=== PATIENT | male | born 1940 ===

== ENCOUNTER 2017-01-31 09:31 | Emergency (ER) | payer MEDICARE, MEDICAID ==
[2017-01-31 09:42] VITALS: BP 130/84; PULSE 70; RESP 20; TEMP 97.8; O2SAT 100
[2017-01-31 09:43] VITALS: BMI 41.9
[2017-01-31] MEDS ORDERED: Lidocaine 1% Inj (20ml) ONE (10:44)
--- NOTE | 2017-01-31 10:53 | ED PDOC ---
HPI: Skin/Bite Injury Time Seen by Provider: 01/31/17 10:02 Chief Complaint (Nursing): Abnormal Skin Integrity Chief Complaint (Provider): Abscess History Per: Patient Additional Complaint(s): 76 yo male presents to ED with c/o abscess lt lower back x 8 days. Site red, swollen and painful. Past Medical History Reviewed: Nursing Documentation, Vital Signs Vital Signs: Last Vital Signs Temp 97.8 F 01/31/17 09:41 Pulse 70 01/31/17 09:41 Resp 20 01/31/17 09:41 BP 130/84 01/31/17 09:41 Pulse Ox 100 01/31/17 10:53 - Medical History PMH: Alzheimer's Disease, Diabetes, HTN - Surgical History Surgical History: Cholecystectomy - Family History Family History: States: No Known Family Hx - Living Arrangements Living Arrangements: With Family - Social History Current smoker - smoking cessation education provided: No Alcohol: None Drugs: Denies - Home Medications Home Medications: Ambulatory Orders Medication Instructions Recorded Clindamycin [Cleocin] 300 mg PO BID #14 cap 01/31/17 Ibuprofen [Motrin] 600 mg PO Q6 #20 tab 01/31/17 - Allergies Allergies/Adverse Reactions: Allergies Allergy/AdvReac Type Severity Reaction Status Date / Time No Known Allergies Allergy Verified 01/31/17 09:49 Review of Systems ROS Statement: Except As Marked, All Systems Reviewed And Found Negative Skin: Positive for: Other ((+) abscess) Physical Exam - Reviewed Nursing Documentation Reviewed: Yes Vital Signs Reviewed: Yes - Physical Exam Appears: Positive for: Well, Non-toxic, No Acute Distress Head Exam: Positive for: ATRAUMATIC, NORMAL INSPECTION, NORMOCEPHALIC Skin: Positive for: Normal Color, Warm, DRY Eye Exam: Positive for: EOMI, Normal appearance, PERRL ENT: Positive for: Normal ENT Inspection Neck: Positive for: Normal, Painless ROM Cardiovascular/Chest: Positive for: Regular Rate, Rhythm Respiratory: Positive for: CNT, Normal Breath Sounds Gastrointestinal/Abdominal: Positive for: Normal Exam, Bowel Sounds, Soft Back: Positive for: Other ((+) right lower back: Tender, erythtematous, fluctuant mass ~ 6 cm in diameter) Extremity: Positive for: Normal ROM Neurologic/Psych: Positive for: Alert, Oriented - ECG O2 Sat by Pulse Oximetry: 100 Medical Decision Making Medical Decision Making: Abscess incised and drained by ticket writer. See procedure note. medicated with Motrin and Clinda PO Disposition - Clinical Impression Clinical Impression: Abscess - Patient ED Disposition Is Patient to be Admitted: No - Disposition Disposition: Routine/Home Disposition Time: 11:45 Condition: STABLE Additional Instructions: Return to ED in 2 days for packing removal in 2 days Prescriptions: Clindamycin [Cleocin] 300 mg PO BID #14 cap Ibuprofen [Motrin] 600 mg PO Q6 #20 tab Instructions: Abscess (ED) Forms: [employer] (Mongolian) Incision and Drainage - Time Time Performed: 11:35 - Time Out Time Out: Side verified, Site verified, Patient ID confirmed - Consent obtained Consent obtained: Verbal - Performed by Performed by: Mid-level Provider - Indications Indications: Cutaneous abscess - Contraindications Contraindications: None - Anesthetic Technique Anesthetic Technique: Local - Anesthetic Anesthetic: Lidocaine 1% - Procedure Procedure: # scalpel used (11), Explored for loculations, Packed with sterile gauze - Post-procedure Post procedure: Dressed - Complications Complications: None
[2017-01-31] MEDS ORDERED: Lidocaine 1% 20 MG/2 ML PF AMP SC ONE (11:40)
== END 2017-01-31 12:10 | disposition home or self-care (01) ==
LOC: H.ER 09:31
DX: L02.212 Cutaneous abscess of back [any part, except buttock and flank] (principal); E11.9 Type 2 diabetes mellitus without complications; F02.80 Dementia in other diseases classified elsewhere, unspecified severity, without behavioral disturbance, psychotic disturbance, mood disturbance, and anxiety; G30.9 Alzheimer's disease, unspecified; I10 Essential (primary) hypertension

== ENCOUNTER 2017-02-03 10:28 | Emergency (ER) | payer MEDICARE, MEDICAID ==
[2017-02-03 10:30] VITALS: BMI 41.9
[2017-02-03 10:34] VITALS: BP 133/73; PULSE 90; RESP 16; TEMP 96.6
[2017-02-03 10:36] VITALS: O2SAT 98
--- NOTE | 2017-02-03 10:43 | ED PDOC ---
HPI: General Adult Time Seen by Provider: 02/03/17 10:34 Chief Complaint (Nursing): Abnormal Skin Integrity History Per: Patient (S/p I&D abscess lower back, here for packing removal. No fever. No pain. Feels much better after I&D. On antibiotics) Onset/Duration Of Symptoms: Days (2) Current Symptoms Are (Timing): Still Present Severity: None Pain Scale Rating Of: 0 Past Medical History Vital Signs: Last Vital Signs Temp 96.6 F L 02/03/17 10:33 Pulse 90 02/03/17 10:33 Resp 16 02/03/17 10:33 BP 133/73 02/03/17 10:33 Pulse Ox 98 02/03/17 10:33 - Medical History PMH: Alzheimer's Disease, Diabetes, HTN - Surgical History Surgical History: Cholecystectomy - Family History Family History: States: Unknown Family Hx - Home Medications Home Medications: Ambulatory Orders Medication Instructions Recorded Clindamycin [Cleocin] 300 mg PO BID #14 cap 01/31/17 Ibuprofen [Motrin] 600 mg PO Q6 #20 tab 01/31/17 - Allergies Allergies/Adverse Reactions: Allergies Allergy/AdvReac Type Severity Reaction Status Date / Time No Known Allergies Allergy Verified 02/03/17 10:33 Review of Systems Constitutional: Negative for: Fever Musculoskeletal: Negative for: Back Pain Physical Exam - Physical Exam Appears: Positive for: Non-toxic, No Acute Distress Skin: Positive for: Normal Color (Packing removed no erythema or tenderness. No drainage), Warm, DRY - ECG O2 Sat by Pulse Oximetry: 98 Disposition - Clinical Impression Clinical Impression: Wound check, abscess - Patient ED Disposition Is Patient to be Admitted: No Counseled Patient/Family Regarding: Diagnosis - Disposition Referrals: [facility] [place] [Outside] Disposition: Routine/Home Disposition Time: 10:43 Condition: FAIR Instructions: Acute Wound Care (ED) Forms: [employer] (Upper Sorbian) Print Language: ECUADOREAN
== END 2017-02-03 10:53 | disposition home or self-care (01) ==
LOC: H.ER 10:28
DX: Z48.00 Encounter for change or removal of nonsurgical wound dressing (principal)